=== PATIENT | male | born 1990 | race Caucasian/White ===

== ENCOUNTER 2022-06-25 02:39 | Emergency (ER) | payer OTHER, MEDICAID ==
[~2022-06-25] VITALS: Ht 167.6 cm; Wt 55.0 kg
[2022-06-25 03:02] VITALS: BP 148/86
== END 2022-06-25 07:49 | disposition left against medical advice (07) ==
LOC: ER 02:39
DX: Z53.21 Procedure and treatment not carried out due to patient leaving prior to being seen by health care provider (principal); E11.9 Type 2 diabetes mellitus without complications; Z98.890 Other specified postprocedural states